=== PATIENT | female | born 1990 | race Caucasian/White ===

== ENCOUNTER 2016-11-28 16:33 | Inpatient (IN) | payer BC ==
[~2016-11-28] VITALS: Ht 152.4 cm; Wt 61.1 kg
[2016-11-28] MEDS ORDERED: SODIUM CHLORIDE 0.9% 1,000 ML IV ONE ×2 (16:49→18:00)
[2016-11-28] MEDS ORDERED: SODIUM CHLORIDE FLUSH 10ML SYR IVF ONE ×2 (17:00→18:30)
[2016-11-28 17:22] LABS: HEMATOCRIT 39.6 % (34.6-47.8); HEMOGLOBIN 13.1 g/dL (11.7-16.4); WHITE BLOOD COUNT 13.7 x10^3/uL (3.4-10)
[2016-11-28] MEDS ORDERED: ONDANSETRON 2MG/ML, 2ML IVPush PRN (17:30)
[2016-11-28] MEDS ORDERED: MORPHINE SULFATE 4 MG/ML, 1ML IVPush PRN (17:30)
[2016-11-28] MEDS ORDERED: MORPHINE SULFATE 4 MG/ML, 1ML ONE ×2 (17:43→21:06)
[2016-11-28] MEDS ORDERED: ONDANSETRON 2MG/ML, 2ML ONE ×2 (17:43→18:35)
[2016-11-28] MEDS ORDERED: BUPIVACAINE/PF 0.5% ONE (18:07)
[2016-11-28] MEDS ORDERED: EPINEPHRINE 1 MG/ML, 1ML ONE (18:07)
[2016-11-28] MEDS ORDERED: MIDAZOLAM 1 MG/ML, 2ML ONE (18:24)
[2016-11-28] MEDS ORDERED: FENTANYL PF 100 MCG/2ML ONE ×3 (18:24→20:00)
[2016-11-28] MEDS ORDERED: SUCCINYLCHOLINE 20 MG/ML, 10ML ONE (18:35)
[2016-11-28] MEDS ORDERED: CEFAZOLIN 1,000 MG ONE (18:35)
[2016-11-28] MEDS ORDERED: NEOSTIGMINE 1 MG/ML, 10ML ONE (18:35)
[2016-11-28] MEDS ORDERED: DEXAMETHASONE 4 MG/ML, 1ML ONE (18:35)
[2016-11-28] MEDS ORDERED: GLYCOPYRROLATE 0.2MG/1ML ONE (18:35)
[2016-11-28] MEDS ORDERED: ROCURONIUM 10 MG/ML ONE (18:35)
[2016-11-28] MEDS ORDERED: PROPOFOL 10 MG/ML, 20ML ONE (18:35)
[2016-11-28] MEDS ORDERED: MIDAZOLAM 1 MG/ML, 2ML IV PRN (19:30)
[2016-11-28] MEDS ORDERED: ACETAMINOPHEN 325 MG TABLET PO PRN (19:30)
[2016-11-28] MEDS ORDERED: hydrALAzine 20 MG/ML, 1ML IV PRN (19:30)
[2016-11-28] MEDS ORDERED: MEPERIDINE/PF 25MG/0.5ML IVPush PRN (19:30)
[2016-11-28] MEDS ORDERED: METOPROLOL 1 MG/ML, 5ML IV PRN (19:30)
[2016-11-28] MEDS ORDERED: ALBUTEROL SULFATE 2.5 MG/3 ML NPPB PRN (19:30)
[2016-11-28] MEDS ORDERED: HYDROmorphone 1 MG/ML, 1ML IV PRN (19:30)
[2016-11-28] MEDS ORDERED: OXYcodone 5 MG/5 ML ORAL.SOL UDC PO PRN (19:30)
[2016-11-28] MEDS ORDERED: PROMETHAZINE 25 MG/ML, 1ML IV PRN (19:30)
[2016-11-28] MEDS: FENTANYL PF 100 MCG/2ML IV PRN ×2 (20:13→20:26)
[2016-11-28] MEDS ORDERED: OXYcodone 5 MG/5 ML ORAL.SOL UDC ONE (20:16)
[2016-11-28 21:11] VITALS: BP 101/69
[2016-11-28] MEDS ORDERED: SODIUM CHLORIDE 0.9% 1,000 ML IV SCH (22:00)
[2016-11-28] MEDS ORDERED: OXYcodone/APAP 5/325MG TABLET PO PRN (22:00)
[2016-11-28] MEDS ORDERED: ONDANSETRON 2MG/ML, 2ML IV PRN (22:00)
[2016-11-28] MEDS ORDERED: KETOROLAC 30 MG/1 ML IV PRN (22:00)
[2016-11-28] MEDS ORDERED: PROMETHAZINE 25 MG/ML, 1ML IV ONE (22:00)
[2016-11-28] MEDS ORDERED: OXYC-302 PO (22:13)
[2016-11-28] MEDS ORDERED: DOCU-30 PO (22:14)
[2016-11-28] MEDS ORDERED: IBUP-1222 PO (22:14)
[2016-11-28 23:55] VITALS: BP 111/75
[2016-11-29] MEDS ORDERED: LACTATED RINGERS 1,000 ML IVBOLUS ONE (01:00)
[2016-11-29] MEDS: morphine SULFATE 10 MG/ML, 1ML IV PRN ×2 (02:00→08:11)
[2016-11-29 03:11] VITALS: BP 87/50
[2016-11-29] MEDS ORDERED: MEPERIDINE/PF 50 MG/ML IM PRN (04:30)
[2016-11-29] MEDS ORDERED: MEPERIDINE/PF 100 MG/ML ONE (04:32)
[2016-11-29 04:45] VITALS: BP 101/67
[2016-11-29 04:52] LABS: HEMOGLOBIN 12.7 g/dL (11.7-16.4); WHITE BLOOD COUNT 16.8 x10^3/uL (3.4-10)
[2016-11-29] MEDS ORDERED: IBUPROFEN 600 MG TABLET PO SCH (06:00)
[2016-11-29 08:15] VITALS: BP 107/70
[2016-11-29 11:13] VITALS: BP 108/68
== END 2016-11-29 11:15 | disposition home or self-care (01) | DRG 777 ==
LOC: ED 17:02 → EDIP 18:49 → 4NOR 21:10
PROVIDERS: ADMIT Obstetrics & Gynecology; ATTEND Obstetrics & Gynecology
PROC: 0UT14ZZ Resection of Left Ovary, Percutaneous Endoscopic Approach (ICD-10-PCS; 2016-11-28)
PROC: 0WCG4ZZ Extirpation of Matter from Peritoneal Cavity, Percutaneous Endoscopic Approach (ICD-10-PCS; 2016-11-28)
PROC: 0UT64ZZ Resection of Left Fallopian Tube, Percutaneous Endoscopic Approach (ICD-10-PCS; principal; 2016-11-28 18:30)
DX: O00.10 Tubal pregnancy without intrauterine pregnancy (principal); K66.1 Hemoperitoneum; O99.321 Drug use complicating pregnancy, first trimester; O23.521 Salpingo-oophoritis in pregnancy, first trimester; F12.90 Cannabis use, unspecified, uncomplicated; O21.9 Vomiting of pregnancy, unspecified; R10.2 Pelvic and perineal pain; Z3A.01 Less than 8 weeks gestation of pregnancy
CPT/HCPCS: 36415; 84702; 84703; 85025; 86850; 86900; 86923; 88305; 99285; J0171; J0690; J1100; J1885; J2175; J2250; J2405; J2704; J2710; J3010; J3490; J0330; J2270; J7030; J7120